=== PATIENT | female | born 2000 | race Caucasian/White ===

== ENCOUNTER 2018-04-14 08:56 | Emergency (ER) | payer SELFPAY ==
[~2018-04-14] VITALS: Ht 152.4 cm; Wt 58.6 kg
[~2018-04-14 08:56] MED LIST: IBUP-232 PO; ROBA500T PO
[2018-04-14 09:02] VITALS: BP 117/63; PULSE 66; RESP 16; TEMP 98.5; O2SAT 99
[2018-04-14 10:11] LABS: BILIRUBIN, URINE NEG (NEG); BLOOD, URINE NEG (NEG); GLUCOSE,URINE NEG (NEG); KETONE, URINE NEG (NEG); NITRITE,URINE NEG (NEG); SQUAMOUS EPITHELIAL CELL URINE 9 /hpf (0-5); URINE COLOR YELLOW (YELLW/STRAW); URINE LEUKOCYTE ESTERASE TRACE (NEG)
[2018-04-14] MEDS ORDERED: ONDANSETRON ODT 4 MG TAB PO ONE (10:30)
[2018-04-14] MEDS ORDERED: ACETAMINOPHEN 500 MG CPLT PO ONE (10:30)
--- NOTE | 2018-04-14 11:08 | PD ---
HPI Chief Complaint: GI Complaint Time Seen by Provider: 09:36 Travel History International Travel<30 days: No Contact w/Intl Traveler<30days: No Traveled to known affect area: No History of Present Illness HPI 17-year-old female presents the ED for evaluation of 1 week history of white discharge, intermittent, dull, frontal headache, intermittent nausea and vomiting. Symptoms onset gradually. Patient denies fever, chills, cold or flu symptoms, abdominal pain, changes in bowel habits, dysuria, hematuria. She denies risk of , LMP 03/29. She endorses unprotected sex with a single male partner, last episode 2 weeks ago. She states that she has had this vaginal discharge before and had an STD at the time. [facility] Past Medical History Developmental Delay: No Diminished Hearing: No Immunizations Current: Yes ?: Not LMP: 03/25/2018 Social History Alcohol Use: No Tobacco Use: No (only occasional marijuana ) Substance Use: No Allergies-Medications (Allergen,Severity, Reaction): Coded Allergies: No Known Allergies (Verified , 08/30/16) Reported Meds & Prescriptions Reported Meds & Active Scripts Active Flagyl (Metronidazole) 500 Mg Tab 500 Mg PO BID 7 Days Robaxin (Methocarbamol) 500 Mg Tab 500 Mg PO QID PRN Ibuprofen 600 Mg Tab 600 Mg PO Q8HR PRN Review of Systems Except as stated in HPI: all other systems reviewed are Neg Physical Exam Narrative GENERAL: Well-nourished, well-developed female no acute distress. SKIN: Focused skin assessment warm/dry. EYES: No scleral icterus. No injection or drainage. PERRLA. EOMI. ENT: Pearly re[place] tympanic membrane's bilaterally. Oropharynx without erythema, edema, exudate. NECK: Supple, trachea midline. No JVD or lymphadenopathy. CARDIOVASCULAR: Regular rate and rhythm without murmurs, gallops, or rubs. RESPIRATORY: Breath sounds clear and equal bilaterally. No accessory muscle use. GASTROINTESTINAL: Abdomen soft, non-tender, nondistended. GENITOURINARY: Normal external genitalia without lesions or erythema. Vaginal vault without blood. Thick white drainage in the vaginal vault. Cervical os was closed without drainage. No cervical motion tenderness. Uterus nontender and nonenlarged. Bilateral adnexa nontender without masses. MUSCULOSKELETAL: No cyanosis, or edema. NEUROLOGICAL: Awake and alert. Cranial nerves II through XII intact. Motor and sensory grossly within normal limits. Five out of 5 muscle strength in all muscle groups. Normal speech. BACK: Nontender without obvious deformity. No CVA tenderness. Data Data Last Documented VS Vital Signs Date Time Temp Pulse Resp B/P (MAP) Pulse Ox O2 Delivery O2 Flow Rate FiO2 04/14/18 09:02 98.5 66 16 117/63 (81) 99 Orders Orders Urinalysis - C+S If Indicated (04/14/18 09:36) Ed Urine Pregnancytest Poc (04/14/18 09:36) Gc And Chlamydia Pcr (04/14/18 10:18) Wet Prep Profile (04/14/18 10:18) Acetaminophen (Tylenol) (04/14/18 10:30) Ondansetron Odt (Zofran Odt) (04/14/18 10:30) Azithromycin Powd Pack (Zithromax Powd P (04/14/18 12:00) Rocephin 250mg Vial Im X 1 (04/14/18 12:00) Lidocaine 1% Inj (50 Ml) (Xylocaine 1% I (04/14/18 12:00) Labs Laboratory Tests Test 04/14/18 09:00 04/14/18 10:56 Urine Color YELLOW Urine Turbidity HAZY Urine pH 6.0 Urine Specific [place] 1.020 Urine Protein NEG mg/dL Urine Glucose (UA) NEG mg/dL Urine Ketones NEG mg/dL Urine Occult Blood NEG Urine Nitrite NEG Urine Bilirubin NEG Urine Urobilinogen LESS THAN 2 mg/dL Urine Leukocyte Esterase TRACE Urine RBC 1 /hpf Urine WBC 8 /hpf Urine Squamous Epithelial Cells 9 /hpf Microscopic Urinalysis Comment CULT NOT INDICATED Clue Cells (Wet Prep) PRESENT Vaginal Trichomonas (Wet Prep) NONE SEEN Vaginal Yeast (Wet Prep) NONE SEEN MDM Medical Decision Making Medical Screen Exam Complete: Yes Emergency Medical Condition: Yes Differential Diagnosis versus UTI versus STD versus cephalgia versus other Narrative Course 17-year-old female presents the ED for evaluation of 1 week history of white discharge, intermittent, dull, frontal headache, intermittent nausea and vomiting. Symptoms onset gradually. Patient denies fever, chills, cold or flu symptoms, abdominal pain, changes in bowel habits, dysuria, hematuria. She denies risk of , LMP 03/29. She endorses unprotected sex with a single male partner, last episode 2 weeks ago. She states that she has had this vaginal discharge before and had an STD at the time. Vitals reviewed. No focal neuro deficits on exam. Abdominal exam unremarkable. No CVA tenderness. Thick white discharge in the vaginal vault on exam. Patient requests empiric treatment for GC and chlamydia. This was administered. Wet prep positive for clue cells. Patient is prescribed Flagyl 500 mg twice daily 7 days. She is instructed to abstain from sex, follow with the health department. She indicated understanding the instructions and is agreeable to the care plan. The patient is stable and discharged home. Diagnosis Primary Impression: Bacterial vaginosis Referrals: [facility]. Additional Instructions: Use condoms for safer sex practice. Notify all partners of symptoms. Abstain from sex until test of cure is performed at the health department in 1 week. Follow-up with the health department in 1 week as discussed for full battery of STD testing and test of cure. Begin antibiotics today and take them as prescribed until every pill is gone. Return to the ED for worsening symptoms or any urgent or emergent medical condition. Med/Other Pt SpecificInfo: Prescription(s) given Scripts Metronidazole (Flagyl) 500 Mg Tab 500 MG PO BID for Infection for 7 Days, #14 TAB 0 Refills Prov: Jace Molina MD 04/14/18 Disposition: 01 DISCHARGE HOME Condition: Stable Najma Hampton Apr 14, 2018 11:08
[2018-04-14] MEDS ORDERED: METR-1 PO (11:47)
[2018-04-14] MEDS ORDERED: LIDOCAINE HCL 1% 50 ML VIAL IM ONE (12:00)
[2018-04-14] MEDS ORDERED: cefTRIAXone 250 MG VIAL IM ONE (12:00)
[2018-04-14] MEDS ORDERED: AZITHROMYCIN PWD FOR SUSP 1 GM PACKET PO ONE (12:00)
== END 2018-04-14 12:12 | disposition home or self-care (01) ==
LOC: NEPD 08:56
DX: N76.0 Acute vaginitis (principal); R51 Headache; R11.2 Nausea with vomiting, unspecified
CPT/HCPCS: 81001; 84703; 87210; 87491; 87591; 96372; 99283; J0696